=== PATIENT | male | born 1960 | race African-American/Black ===

== ENCOUNTER 2017-09-14 22:15 | Inpatient (IN) | payer OTHER ==
[~2017-09-14] VITALS: Ht 182.9 cm; Wt 104.8 kg
[2017-09-14] MEDS ORDERED: NALOXONE PREFILLED SYRINGE 2 MG/2 ML SYRINGE ONE (22:22)
--- NOTE | 2017-09-14 22:28 | NUR ---
BBRA 102; PT FOUND DROWSIE, HYPOTENSIVE AT PSYCH FACILITY. PT NOTED DROWSEY AOX3 RR EVEN AND UNLABORED. NO SOB NOTED. NAD NOTED. NO NVD AT THIS TIME. PT GOWNED AND PLACED ON MONITOR. DR. YUNG AT BEDSIDE FOR EVAL.
--- NOTE | 2017-09-14 22:29 | NUR ---
PT NOTED WITH RA 02 SAT 85%, PT PLACED ON NC 4LPM, IMPROVED SAT TO 97%
[2017-09-14] MEDS ORDERED: NALOXONE HCL 0.4 MG/ML AMPUL IV ONE (22:30)
[2017-09-14] MEDS ORDERED: IV NS 0.9% 1,000 ML BAG IV ONE (22:30)
--- NOTE | 2017-09-14 22:30 | NUR ---
CALLED NURSING SUP. FOR ICU BED
[2017-09-14 22:43] LABS: BASOPHILS # (AUTO) 0.1 /CMM (0.0-0.2); BASOPHILS % (AUTO) 0.7 % (0.0-2.0); EOSINOPHILS % (AUTO) 1.8 % (0.0-6.0); HEMATOCRIT 35 % (39-51); HEMOGLOBIN 11.2 g/dL (13.5-17.5); LYMPHOCYTES # (AUTO) 3.7 /CMM (0.8-4.8); LYMPHOCYTES % (AUTO) 48.2 % (20.0-44.0); MEAN CORPUSCULAR HGB CONC 32 g/dl (31.0-36.0); MEAN CORPUSCULAR VOLUME 82 fL (80-96); MONOCYTES # (AUTO) 0.7 /CMM (0.1-1.30); MONOCYTES % (AUTO) 8.7 % (2.0-12.0); NEUTROPHILS # (AUTO) 3.1 /CMM (1.8-8.9); NEUTROPHILS % (AUTO) 40.6 % (43.0-81.0); PLATELET COUNT (AUTO) 171 /CMM (150-450); RDW COEFFICIENT OF VARIATION 14.7 (11.5-15.0); RED BLOOD CELL COUNT(AUTO) 4.22 MIL/uL (4.5-6.0); WHITE BLOOD COUNT (AUTO) 7.7 K/uL (4.3-11.0)
[2017-09-14] MEDS ORDERED: IOHEXOL-350 100 ML VIAL IV ONE (22:46)
[2017-09-14] MEDS ORDERED: CT SWABBABLE VALVE TRANS SET 1 EA INFUS.SET MC ONE (22:46)
[2017-09-14] MEDS ORDERED: IV NS 0.9% 500 ML IV ONE (22:47)
[2017-09-14 22:57] LABS: INR 0.98 (0.87-1.13)
--- NOTE | 2017-09-14 23:04 | NUR ---
RADIOLOGY AT BEDSIDE FOR CXR
--- NOTE | 2017-09-14 23:17 | NUR ---
PT TO CT.
[2017-09-14 23:21] LABS: THYROID STIMULATING HORMONE 4.833 uIU/mL (0.358-3.74)
[2017-09-14 23:29] LABS: CHLORIDE 99 mmol/L (98-107); SODIUM SERUM 132 mmol/L (136-145)
[2017-09-14 23:30] LABS: BILIRUBIN,DIRECT 0.1 mg/dL (0.0-0.2); BILIRUBIN,TOTAL 0.7 mg/dL (0.2-1.0); CALCIUM, SERUM 8.9 mg/dL (8.5-10.1); CARBON DIOXIDE 24 mmol/L (21-32); CREATININE 2.1 mg/dL (0.6-1.3); GLUCOSE 158 mg/dL (74-106); UREA NITROGEN, BLOOD 31 mg/dL (7-18)
[2017-09-14 23:31] LABS: ACETAMINOPHEN 0 ug/ml (10-30); ALANINE AMINOTRANSFERASE 28 U/L (12-78); ALBUMIN 3.3 g/dL (3.4-5.0); ALKALINE PHOSPHATASE 55 U/L (46-116); ASPARTATE AMINOTRANSFERASE 30 U/L (15-37); SALICYLATE 2.2 mg/dL (2.8-20.0); SERUM AMMONIA 16 umol/L (11-32)
--- NOTE | 2017-09-14 23:35 | NUR ---
PT RETURNED FROM CT.
[2017-09-14 23:47] LABS: ALCOHOL, BLOOD < 3 mg/dL (0-0); TROPONIN I < 0.017 ng/mL (0.00-0.056)
[2017-09-15] VITALS (22 sets, daily range): BP systolic 95–140; BP diastolic 46–87
[2017-09-15] MEDS ORDERED: IV NS 0.9% 500 ML BAG IV ONE
--- NOTE | 2017-09-15 01:43 | NUR ---
REPORT GIVEN TO SHABBIR FOR ICU BED 260.
[2017-09-15] MEDS ORDERED: LISI10TA5 PO (01:49)
[2017-09-15] MEDS ORDERED: GABA800T2 PO (01:49)
[2017-09-15] MEDS ORDERED: EFAV600T8 PO (01:49)
[2017-09-15] MEDS ORDERED: EMTR1TAB12 PO (01:49)
[2017-09-15] MEDS ORDERED: QUET300T2 PO (01:49)
[2017-09-15] MEDS ORDERED: BUPR150T10 PO (01:49)
[2017-09-15] MEDS ORDERED: ALBU8.5H8 INH (01:49)
[2017-09-15] MEDS ORDERED: LOPI1TAB2 PO (01:49)
[2017-09-15] MEDS ORDERED: TRAM50TA2 PO (01:50)
[2017-09-15] MEDS ORDERED: EFAV1TAB PO (01:50)
--- NOTE | 2017-09-15 02:04 | NUR ---
ENDORESED TO RN BIJU TO COLLECT URINE WHEN AVAILABLE.
--- NOTE | 2017-09-15 02:16 | NUR ---
PT TRANSFERRED PER ACLS PROCOTOL TO ER BED 260
--- NOTE | 2017-09-15 02:45 | NUR ---
RN NOTES PATIENT ARRIVED VIA GURNEY, TOLERATED TRANSFER TO BED WELL. PT IS A/O X1 ONLY, UNABLE TO RECALL WHAT HAPPENED IN THE FACILITY, UNABLE TO PROVIDE OWN MEDICAL HISTORY. PT IS ON 2L NASAL CANNULA, SATURATING WELL, NO S/S OF RESP DISTRESS. DENIES ANY PAIN. CURRENTLY SR ON THE MONITOR, HR 80'S. BP IS WNL. NOTED SMALL ABDOMINAL WOUND, PIC TAKEN AND FILED. PT IS CONTINENT, ABLE TO USE URINAL NEEDED. LEFT AC 18, LEFT HAND 20G, AND RIGHT HAND 20G ALL FLUSHED AND PATENT, NO S/S OF INFILTRATION/INFECTION, DRESSINGS CDI. BED LOW AND LOCKED, SIDERAILS UP, CALL LIGHT WITHIN REACH. WILL MONITOR
[2017-09-15] MEDS ORDERED: ONDANSETRON HCL/PF 4 MG/2 ML VIAL IVP PRN (03:00)
[2017-09-15] MEDS ORDERED: MAGNESIUM HYDROXIDE 30 ML UDC PO PRN (03:00)
[2017-09-15] MEDS ORDERED: MAG HYDROX/AL HYDROX/SIMETH 30 ML UDC PO PRN (03:00)
[2017-09-15] MEDS ORDERED: ACETAMINOPHEN 325 MG TABLET PO PRN (03:00)
[2017-09-15] MEDS ORDERED: Z GUARD REMEDY 2 OZ OINT TP PRN (03:00)
[2017-09-15] MEDS: IV NS 0.9% 1,000 ML IV PRN (03:12)
[2017-09-15] MEDS: CEFTRIAXONE 1 G in IV D5W 50 ML IV SCH (03:19)
--- NOTE | 2017-09-15 03:25 | NUR ---
LOADER HELPER SORTING YARD NOTE CLARIFIED DIET ORDER WITH BAGGAGE INSPECTOR JACQUELYN, PATIENT AWAKE, ALERT, C/O FEELING HUNGRY AND THIRSTY. WITH NO DIFFICULTY IN SWALLOWING. PER JACQUELYN OK TO START ON REGULAR DIET.
[2017-09-15] MEDS ORDERED: NOREPINEPHRINE 16 MG in IV D5W 500 ML IV PRN (04:00)
[2017-09-15] MEDS ORDERED: METRONIDAZOLE 500MG/ NS 100ML 100 ML IV ONE (05:05)
[2017-09-15 05:08] LABS: BASOPHILS % (AUTO) 0.6 % (0.0-2.0); EOSINOPHILS % (AUTO) 1.3 % (0.0-6.0); HEMATOCRIT 31 % (39-51); HEMOGLOBIN 9.9 g/dL (13.5-17.5); LYMPHOCYTES # (AUTO) 2.2 /CMM (0.8-4.8); LYMPHOCYTES % (AUTO) 34.3 % (20.0-44.0); MEAN CORPUSCULAR HGB CONC 32 g/dl (31.0-36.0); MEAN CORPUSCULAR VOLUME 83 fL (80-96); MONOCYTES # (AUTO) 0.6 /CMM (0.1-1.30); MONOCYTES % (AUTO) 9.6 % (2.0-12.0); NEUTROPHILS # (AUTO) 3.5 /CMM (1.8-8.9); NEUTROPHILS % (AUTO) 54.2 % (43.0-81.0); PLATELET COUNT (AUTO) 173 /CMM (150-450); RDW COEFFICIENT OF VARIATION 14.9 (11.5-15.0); RED BLOOD CELL COUNT(AUTO) 3.74 MIL/uL (4.5-6.0); WHITE BLOOD COUNT (AUTO) 6.4 K/uL (4.3-11.0)
[2017-09-15] MEDS: METRONIDAZOLE 500MG/ NS 100ML 500 MG in PREMIX 1 EA IV SCH ×3 (05:09→17:16)
[2017-09-15 05:38] LABS: APPEARANCE,URINE CLEAR (CLEAR); BILIRUBIN,URINE NEGATIVE (NEGATIVE); BLOOD, URINE NEGATIVE Ery/uL (NEGATIVE); COLOR,URINE OTHER (YELLOW); KETONES,URINE NEGATIVE (NEGATIVE); LEUKOCYTE ESTERASE ,URINE NEGATIVE (NEGATIVE); NITRITE, URINE NEGATIVE (NEGATIVE); PH,URINE 6.5 (5.0-8.0); PROTEIN,URINE NEGATIVE (NEGATIVE); UGLUCOSE NEGATIVE (NEGATIVE); UROBILINOGEN,URINE 0.2 EU/dL (0.2)
[2017-09-15 05:42] LABS: CREATININE 1.6 mg/dL (0.6-1.3); POTASSIUM 4.5 mmol/L (3.5-5.1)
--- NOTE | 2017-09-15 06:15 | NUR ---
RN CLOSING NOTES PT REMAINS STABLE OF THE MOMENT. ALL DUE MEDS GIVEN, AM CARE PROVIDED. WILL ENDORSE RICKY TO AM RN
[2017-09-15] MEDS: PANTOPRAZOLE 40 MG VIAL IV SCH (08:11)
[2017-09-15] MEDS: ENOXAPARIN SODIUM 40 MG/0.4 ML DISP.SYRIN SQ SCH (08:12)
[2017-09-15] MEDS: HYDROCODONE/APAP 5/325MG 1 EACH TABLET PO PRN ×3 (10:01→21:47)
--- NOTE | 2017-09-15 11:25 | NUR ---
TEXTED MD RAMIREZ ABOUT HIV MEDICATION RECONCILIATION AND THAT PHARMACY DOES NOT STOCK BOBBI UGALDE TEXTED BACK ID CONSULTED.
[2017-09-15] MEDS: GABAPENTIN 400 MG CAPSULE PO SCH ×2 (13:23→16:19)
--- NOTE | 2017-09-15 15:00 | NUR ---
RN NOTES RECEIVED PT FROM ICU, A&0X3, ON ROOM AIR, SR ON THE TELE JUAN HR 78. LAC 18G IV SITE INTACT WITH IVF AT 75ML/HR. COMPLAINS OF BACK PAIN 12/22. BED LOCKED AND IN LOWEST POSITION, CALL LIGHT WITHIN REACH, SIDE RAILS UPX3, WILL CONT TO JUAN.
[2017-09-15] MEDS: buPROPion SR 150 MG TABLET.ER PO SCH (16:19)
[2017-09-15] MEDS ORDERED: LOPINAVIR PO SCH (17:00)
[2017-09-15] MEDS ORDERED: RITONAVIR PO SCH (17:00)
--- NOTE | 2017-09-15 17:12 | NUR ---
09/15/17 Patient was transferred from [facility] in [place] . Patient was independent and ambulatory prior to admission. Has no family or relative on file. Current plan is to dc back to [facility] once medically clear. Addendum: 09/15/17 at 1713 by TYRELL JOSHI RN Amended: Links added.
--- NOTE | 2017-09-15 18:45 | NUR ---
RN NOTES PT REMAINED IN STABLE CONDITION, NO SIGNIFICANT CHANGES NOTED. ALL NEEDS MET. WAITING FOR ID CONSULT. WILL ENDORSE TO ONCOMING SHIFT.
--- NOTE | 2017-09-15 20:05 | NUR ---
DIANA RN NOTES RECEIVED BEDSIDE REPORT FROM AM NURSE. PT IN BED , EATING SANDWICH, A&0X4, ON ROOM AIR, SR ON THE TELE JUAN HR 82. LAC 18G IV SITE INTACT WITH IV NS AT 75ML/HR. COMPLAINS OF BACK PAIN 01/21. PAIN MEDICATION WILL BE PROVIDED. BED LOCKED AND IN LOWEST POSITION, CALL LIGHT WITHIN REACH, SIDE RAILS UPX2, WILL CONT. TO MONITOR.
[2017-09-15] MEDS: ZOLPIDEM TARTRATE 5 MG TABLET PO PRN (21:47)
[2017-09-15] MEDS ORDERED: QUETIAPINE FUMARATE 100 MG TABLET PO SCH (22:00)
[2017-09-16] VITALS: BP 118/57
[2017-09-16] MEDS: METRONIDAZOLE 500MG/ NS 100ML 500 MG in PREMIX 1 EA IV SCH ×4 (00:32→17:12)
[2017-09-16] MEDS: CEFTRIAXONE 1 G in IV D5W 50 ML IV SCH (03:40)
[2017-09-16 04:00] VITALS: BP 117/71
[2017-09-16 05:11] LABS: *BASOS 0 % (Not Estab.); *EOS 1 % (Not Estab.); *EOS, ABSOLUTE 0.1 x10E3/uL (0.0-0.4); *HGB 9.9 g/dL (13.0-17.7); *IMMATURE GRANULOCYTES 0 % (Not Estab.); *LYMPHOCYTES 37 % (Not Estab.); *LYMPHS, ABSOLUTE 2.3 x10E3/uL (0.7-3.1); *MCV 87 fL (79-97); *MONOCYTES 10 % (Not Estab.); *MONOS, ABSOLUTE 0.6 x10E3/uL (0.1-0.9); *NEUTROPHILS 52 % (Not Estab.); *NEUTROPHILS, ABSOLUTE 3.3 x10E3/uL (1.4-7.0); *PLT 189 x10E3/uL (150-379); *RBC 3.81 x10E6/uL (4.14-5.80); *RDW 14.6 % (12.3-15.4)
[2017-09-16 06:26] LABS: BASOPHILS % (AUTO) 0.8 % (0.0-2.0); EOSINOPHILS % (AUTO) 4.1 % (0.0-6.0); HEMATOCRIT 33 % (39-51); HEMOGLOBIN 10.6 g/dL (13.5-17.5); LYMPHOCYTES # (AUTO) 2.4 /CMM (0.8-4.8); LYMPHOCYTES % (AUTO) 51.1 % (20.0-44.0); MEAN CORPUSCULAR HGB CONC 32 g/dl (31.0-36.0); MEAN CORPUSCULAR VOLUME 83 fL (80-96); MONOCYTES # (AUTO) 0.6 /CMM (0.1-1.30); MONOCYTES % (AUTO) 13.5 % (2.0-12.0); NEUTROPHILS # (AUTO) 1.4 /CMM (1.8-8.9); NEUTROPHILS % (AUTO) 30.5 % (43.0-81.0); PLATELET COUNT (AUTO) 179 /CMM (150-450); RDW COEFFICIENT OF VARIATION 15.1 (11.5-15.0); RED BLOOD CELL COUNT(AUTO) 3.98 MIL/uL (4.5-6.0); WHITE BLOOD COUNT (AUTO) 4.6 K/uL (4.3-11.0)
[2017-09-16 07:06] LABS: CALCIUM, SERUM 8.6 mg/dL (8.5-10.1); CREATININE 1.1 mg/dL (0.6-1.3); MAGNESIUM 1.7 mg/dL (1.8-2.4); PHOSPHORUS 2.6 mg/dL (2.5-4.9); POTASSIUM 4.6 mmol/L (3.5-5.1)
--- NOTE | 2017-09-16 07:15 | NUR ---
RN INITIAL NOTES: REC'D PT ON BED, NOT IN ANY DISTRESS, A/O X 4. ON ROOM AIR, NO SOB. ON TELEMONITOR, SR W/ HR 76 BPM. HAS L AC G18, PL, PATENT & INTACT W/ NO S/SX OF INFECTION/INFILTRATION NOTED, W/ NS X 75 CC/HR INFUSING WELL. PROVIDED COMFORT & SAFETY ENVIRONMENT. CALL LIGHT PLACED W/IN REACH. WILL CONTINUE TO MONITOR & ATTEND PT NEEDS.
[2017-09-16 07:21] LABS: FERRITIN 44 ng/mL (8-388)
[2017-09-16 08:00] VITALS: BP 144/99
[2017-09-16] MEDS: PANTOPRAZOLE 40 MG VIAL IV SCH (08:13)
[2017-09-16] MEDS: HYDROCODONE/APAP 5/325MG 1 EACH TABLET PO PRN ×2 (08:13→15:17)
[2017-09-16] MEDS: GABAPENTIN 400 MG CAPSULE PO SCH ×3 (08:13→17:11)
[2017-09-16] MEDS: buPROPion SR 150 MG TABLET.ER PO SCH ×2 (08:13→17:11)
[2017-09-16] MEDS: IV NS 0.9% 1,000 ML IV PRN (08:13)
[2017-09-16] MEDS: LISINOPRIL (10MG) 10 MG TABLET PO SCH (08:14)
[2017-09-16] MEDS: ENOXAPARIN SODIUM 40 MG/0.4 ML DISP.SYRIN SQ SCH (08:14)
[2017-09-16 08:16] LABS: IRON, SERUM 96 ug/dl (50-175); TOTAL IRON BINDING CAPACITY 300 ug/dl (250-450)
--- NOTE | 2017-09-16 08:30 | NUR ---
RN NOTES: PT SEEN & EXAMINED BY DR. RAMIREZ.
[2017-09-16] MEDS ORDERED: EMTRICITABINE/TENOFOVIR 1 TAB PO SCH (09:00)
--- NOTE | 2017-09-16 10:05 | NUR ---
Social service consult requested by DIANA Adames for homelessness. Pt. is a 56 year old male who was admitted to [facility] for altered mental status. DYLAN and lining caser Geovanny met with pt. bedside. Pt. is alert and oriented x 4. Pt. was cooperative during the assessment. Pt. states he was at [facility] prior to admission at [facility]. However, pt. is currently denying suicidal or homicidal ideations at this time. Pt. has a psychiatric diagnosis of Schizophrenia. Pt. wants to go back to [facility] to cook pickled meat his belongings upon discharge from [facility]. Pt. will require taxi voucher to assist in getting to [id number] [address] in [facility] . Pt. informed SW he will need some clothing as well. SW to give pt. clothing prior to discharge. DYLAN updated DIANA Adames regarding pt's discharge plan. SW to give pt. list of homeless resources and food resources upon discharge.
[2017-09-16] MEDS ORDERED: MAGNESIUM OXIDE 400 MG TABLET PO ONE (10:14)
[2017-09-16] MEDS: EMTRICITABINE 200 MG CAPSULE PO SCH (10:23)
[2017-09-16] MEDS: TENOFOVIR DISOPROXIL FUMARATE 300 MG TABLET PO SCH (10:23)
[2017-09-16] MEDS: EFAVIRENZ 600 MG TABLET PO SCH (10:23)
[2017-09-16 12:00] VITALS: BP_SYST 127; BP_DIAS 78; BP_DIAS 88
[2017-09-16 16:00] VITALS: BP 141/86
[2017-09-16 16:14] LABS: *% CD 4 POS. LYMPH 23.8 % (30.8-58.5); *ABSOLUTE CD 4 HELPER 547 /uL (359-1519); *ABSOLUTE CD 8 SUPPRESSOR 851 /uL (109-897); *CD4/CD8 RATIO 0.64 (0.92-3.72)
--- NOTE | 2017-09-16 18:05 | NUR ---
RN NOTES: PT C/O SEVERE BACK PAIN & REQUESTING FOR HIGHER DOSE OF NORCO. MD ORDERED NORCO 10/325 MG PO Q6H PRN FOR SEVERE PAIN BUT USE PAIN MEDS CAUTIOUSLY.
--- NOTE | 2017-09-16 18:36 | NUR ---
RN CLOSING NOTES: NO ACUTE CHANGES NOTED W/IN SHIFT. PT TOLERATED ROOM AIR, NO SOB. L AC G18, PL, KEPT PATENT & INTACT W/ NO S/SX OF INFECTION/INFILTRATION NOTED, W/ NS X 75 CC/HR INFUSING WELL. KEPT WELL RESTED. NEEDS ATTENDED. BED KEPT LOW & IN LOCKED POS. CALL LIGHT PLACED W/IN REACH. WILL ENDORSE TO PM RN FOR RICKY.
[2017-09-16] MEDS: FOLIC ACID 1 MG TABLET PO SCH (18:48)
--- NOTE | 2017-09-16 19:30 | NUR ---
RN/MS NOTES: RECEIVED PT. IN BED WATCHING T.V. A/O X 4. ABLE TO MAKE NEEDS KNOWN. CONTINENT OF B/B. LAC G 18 PATENT AND INTACT W/ NO S/S INFECTION/INFILTRATION NOTED. W/ NS @ 75 ML/HR. DENIES ANY C/O CHEST PAIN OR SOB AT PRESENT. WILL CONTINUE TO MONITOR.
[2017-09-16 20:00] VITALS: BP 138/89
[2017-09-16] MEDS: HYDROCODONE/APAP 10/325MG 1 EA TABLET PO PRN (20:16)
[2017-09-17] MEDS: METRONIDAZOLE 500MG/ NS 100ML 500 MG in PREMIX 1 EA IV SCH ×5 (00:04→23:59)
[2017-09-17] MEDS: ZOLPIDEM TARTRATE 5 MG TABLET PO PRN ×2 (00:56→21:15)
[2017-09-17] MEDS: CEFTRIAXONE 1 G in IV D5W 50 ML IV SCH (02:02)
[2017-09-17] MEDS: IV NS 0.9% 1,000 ML IV PRN ×2 (03:40→21:21)
[2017-09-17 04:00] VITALS: BP 139/90
--- NOTE | 2017-09-17 07:22 | NUR ---
RN/MS NOTES: NO ACUTE CHANGES NOTED DURING THIS SHIFT. REPORT GIVEN TO AM NURSE FOR RICKY.
[2017-09-17 08:00] VITALS: BP 144/92
[2017-09-17] MEDS: EFAVIRENZ 600 MG TABLET PO SCH (08:05)
[2017-09-17] MEDS: EMTRICITABINE 200 MG CAPSULE PO SCH (08:05)
[2017-09-17] MEDS: TENOFOVIR DISOPROXIL FUMARATE 300 MG TABLET PO SCH (08:05)
[2017-09-17] MEDS: LISINOPRIL (10MG) 10 MG TABLET PO SCH (08:06)
[2017-09-17] MEDS: ENOXAPARIN SODIUM 40 MG/0.4 ML DISP.SYRIN SQ SCH (08:06)
[2017-09-17] MEDS: buPROPion SR 150 MG TABLET.ER PO SCH ×2 (08:07→17:26)
[2017-09-17] MEDS: FOLIC ACID 1 MG TABLET PO SCH (08:07)
[2017-09-17] MEDS: GABAPENTIN 400 MG CAPSULE PO SCH ×3 (08:07→17:26)
[2017-09-17] MEDS: PANTOPRAZOLE 40 MG VIAL IV SCH (08:07)
[2017-09-17] MEDS: HYDROCODONE/APAP 10/325MG 1 EA TABLET PO PRN ×3 (09:32→21:15)
[2017-09-17 16:00] VITALS: BP 135/92
--- NOTE | 2017-09-17 19:24 | NUR ---
RN CLOSING NOTES: NO DISTRESS NOTED. MEDICATED FOR PAIN ORDERED. TOLERATING DIET. VOIDING WELL. WILL CONT TO MONITOR.
[2017-09-17 20:00] VITALS: BP 145/89
--- NOTE | 2017-09-17 20:00 | NUR ---
RN INITIAL NOTES: RECEIVED PT RESTING IN BED. ABLE TO MAKE NEEDS KNOWN. CONTINENT OF B/B. LAC G 18 PATENT AND INTACT W/ NO S/S INFECTION/INFILTRATION NOTED. W/ NS @ 75 ML/HR. WILL CONTINUE TO MONITOR.
[2017-09-18] MEDS: CEFTRIAXONE 1 G in IV D5W 50 ML IV SCH (02:06)
[2017-09-18 04:00] VITALS: BP 140/85
[2017-09-18] MEDS: METRONIDAZOLE 500MG/ NS 100ML 500 MG in PREMIX 1 EA IV SCH ×2 (05:03→12:40)
--- NOTE | 2017-09-18 06:43 | NUR ---
RN CLOSING NOTES: NO CHANGES OVERNIGHT.NO DISTRESS NOTED. MEDICATED FOR PAIN ORDERED. TOLERATING DIET. VOIDING WELL. WILL CONT TO MONITOR.
--- NOTE | 2017-09-18 07:10 | NUR ---
RN OPENING NOTES RECEIVED PT. IN BED SLEEPING. BREATHING UNLABORED, AND EVENLY ON ROOM AIR. NO S/S OF ACUTE DISTRESS. IV FLUIDS RUNNING AT 75 ML/HR. BED IS IN LOWEST, AND LOCKED POSITION. URINAL AT BEDSIDE. 2 SIDE RAILS UP, AND CALL LIGHT WITHIN REACH. ALL NEEDS MET. WILL CONTINUE TO ASSESS AND MONITOR.
[2017-09-18 08:00] VITALS: BP 155/96
[2017-09-18] MEDS: PANTOPRAZOLE 40 MG VIAL IV SCH (08:30)
[2017-09-18] MEDS: LISINOPRIL (10MG) 10 MG TABLET PO SCH (08:36)
[2017-09-18] MEDS: FOLIC ACID 1 MG TABLET PO SCH (08:36)
[2017-09-18] MEDS: GABAPENTIN 400 MG CAPSULE PO SCH ×3 (08:37→16:23)
[2017-09-18] MEDS: buPROPion SR 150 MG TABLET.ER PO SCH ×2 (08:37→16:22)
[2017-09-18] MEDS: TENOFOVIR DISOPROXIL FUMARATE 300 MG TABLET PO SCH (08:38)
[2017-09-18] MEDS: EMTRICITABINE 200 MG CAPSULE PO SCH (08:38)
[2017-09-18] MEDS: EFAVIRENZ 600 MG TABLET PO SCH (08:39)
[2017-09-18] MEDS: ENOXAPARIN SODIUM 40 MG/0.4 ML DISP.SYRIN SQ SCH (08:39)
[2017-09-18] MEDS: HYDROCODONE/APAP 10/325MG 1 EA TABLET PO PRN (09:32)
[2017-09-18] MEDS ORDERED: METR250T PO (11:34)
[2017-09-18] MEDS ORDERED: LEVO500T75 PO (11:34)
[2017-09-18 16:00] VITALS: BP 144/40
--- NOTE | 2017-09-18 16:36 | NUR ---
TOBACCO PACKING MACHINE OPERATOR NOTES PT. WAS DISCHARGED IN MEDICALLY STABLE CONDITION. PT. LEAVING BY TAXI. PT. IS A&OX4. DISCHARGE INSTRUCTIONS WERE GIVEN WITH EDUCATION AND PT. VERBALIZED UNDERSTANDING. ID BAND, AND IV WAS REMOVED WITHOUT COMPLICATIONS. PT. WAS GIVEN RESOURCES FOR FOOD, AND CORRECTION. PT. WAS PROVIDED CLOTHES BEFORE DISCHARGE. BELONGINGS LIST WAS CHECKED, AND SIGNED. DISCHARGE PACKET WITH PRESCRIPTION WAS TAKEN BY PT, AND EXPLAINED ANTIBIOTIC REGIMEN. ALL QUESTIONS ANSWERED. PER STATED HE IS GOING TO [facility] [place] [id number] [address] [facility] [phone].
[2017-09-18] MEDS ORDERED: METRONIDAZOLE 500 MG TABLET PO SCH (18:00)
== END 2017-09-18 16:49 | disposition home or self-care (01) | DRG 720 ==
LOC: ER 22:16 → ICU 09-15 01:37 → TELE1 09-15 15:29 → MEDSG1 09-16 12:22
PROVIDERS: ADMIT Hospitalist; ATTEND Hospitalist
DX: A41.9 Sepsis, unspecified organism (principal); N17.0 Acute kidney failure with tubular necrosis; J69.0 Pneumonitis due to inhalation of food and vomit; R65.21 Severe sepsis with septic shock; G92 Toxic encephalopathy; E87.2 Acidosis; I95.9 Hypotension, unspecified; E44.1 Mild protein-calorie malnutrition; E88.09 Other disorders of plasma-protein metabolism, not elsewhere classified; Z68.31 Body mass index [BMI] 31.0-31.9, adult; F17.210 Nicotine dependence, cigarettes, uncomplicated; F20.9 Schizophrenia, unspecified; J45.909 Unspecified asthma, uncomplicated; M19.90 Unspecified osteoarthritis, unspecified site; Z59.0 Homelessness; K62.89 Other specified diseases of anus and rectum; F32.9 Major depressive disorder, single episode, unspecified; F19.11 Other psychoactive substance abuse, in remission; D63.8 Anemia in other chronic diseases classified elsewhere; D52.9 Folate deficiency anemia, unspecified
CPT/HCPCS: 36415; 70450-TC; 71045-TC; 80048-TC; 80061-TC; 80076-TC; 80305; 81000-TC; 82140-TC; 82728-TC; 82746; 82962-TC; 83540-TC; 83605-TC; 83735-TC; 84100-TC; 84439-TC; 84443-TC; 84484-TC; 85025-TC; 85730-TC; 86360; 87040-TC; 87081-TC; 87086-TC; A4216; A4606; C9113; G0480; J0696; J1650; J2310; J3490; J7030; J7040; J7060; Q9967; Z7610

== ENCOUNTER 2021-04-19 13:23 | Inpatient (IN) | payer OTHER ==
[~2021-04-19] VITALS: Ht 175.3 cm; Wt 87.1 kg
[~2021-04-19 13:23] MED LIST: ALBU8.5H8 INH; BUPR150T10 PO; EFAV600T8 PO; EMTR1TAB12 PO; GABA800T11 PO; LEVO500T23 PO; LISI10TA29 PO; LOPI1TAB2 PO; METR250T PO; QUET300T2 PO; TRAM50TA2 PO
[2021-04-19] MEDS ORDERED: IBUPROFEN 600 MG TABLET PO PRN (16:30)
[2021-04-19] MEDS ORDERED: MAGNESIUM HYDROXIDE 30 ML UDC PO PRN (16:30)
[2021-04-19] MEDS ORDERED: IBUPROFEN 200 MG TABLET PO PRN (16:30)
[2021-04-19] MEDS ORDERED: ACETAMINOPHEN ES 500 MG TABLET PO PRN (16:30)
--- NOTE | 2021-04-19 19:00 | NUR ---
GPS ADMISSION NOTES PATIENT HAS BEEN ADMITTED ON A VOLUNTARY STATUS FOR CLINICAL TRIALS UNDER THE CARE OF DR BEJARANO. PATIENT IS ALERT AND ORIENTED X3. PATIENT IS CALM, COOPERATIVE, SPEECH IS CLEAR. NO S/S OF ACUTE DISTRESS NOTED. PATIENT IS CONTINENT AND AMBULATORY WITH GOOD STEADY GAIT. PATIENT ORIENTED TO UNIT. PT DENIES SUICIDAL AND HOMICIDAL IDEATION AT THIS TIME. PT DENIES AUDITORY HALLUCINATION. PATIENT ADMITTED HAVING VISUAL HALLUCINATION. PATIENT STATES "I SEE THINGS THAT PEOPLE DON'T SEE, SOMETIMES". PT PRESENTS WITH INTACT SKIN. SAFETY MEASURES IN PLACE. WILL CONTINUE TO MONITOR FOR SAFETY, COMFORT AND BEHAVIOR Q15 MINUTES PER GPS PROTOCOL. Addendum: 04/20/21 at 0636 by ROBERTO LINARES RN PATIENT PREFERS REGULAR DIET THAN CARDIAC DIET. EXPLAINED TO PATIENT THAT HE IS HYPERTENSIVE. PATIENT STATES "MY BLOOD PRESSURE IS CONTROLLED. WILL ENDORSE TO DAY SHIFT NURSE TO INFORM DR. BEJARANO REGARDING PATIENT'S DIET.
[2021-04-19 20:00] VITALS: BP 144/91
[2021-04-19] MEDS ORDERED: QUETIAPINE 100 MG PO ONE (22:00)
[2021-04-20 08:00] VITALS: BP 132/72
[2021-04-20] MEDS: BENAZEPRIL 40 MG PO SCH (08:33)
--- NOTE | 2021-04-20 09:29 | NUR ---
RN Notes: Received pt. asleep in bed, breathing is even and unlabored. Ate 100% for breakfast, compliant on med. Pt. is pleasant and cooperative. Encouraged to verbalize feelings and motivated to attend group activity. Needs attended and will continue to monitor for safety.
--- NOTE | 2021-04-20 11:00 | NUR ---
Kike staff of Dr. Hall came and picked up pt. to the doctor's office
[2021-04-20 16:00] VITALS: BP 158/114
--- NOTE | 2021-04-20 16:24 | NUR ---
BP 158/114 and HI 85 and when rechecked BP 151/[address] Hall made aware and ordered Amlodipine 5 mg po daily and first dose now.
[2021-04-20] MEDS: AMLODIPINE BESYLATE 5 MG TABLET PO SCH (16:35)
--- NOTE | 2021-04-20 18:01 | NUR ---
Dr. Hall in the unit and made aware of the latest BP 146/115 and AK 98. No new order. Will continue to monitor
[2021-04-20 18:02] VITALS: BP 146/115
--- NOTE | 2021-04-20 19:30 | NUR ---
GPS RN NOTE, RECEIVED PATIENT AWAKE AND IN BED, NO S/S OR COMPLAINTS OF PAIN AT THIS TIME. PATIENT IS DISPLAYING NO S/S OF APPARENT DISTRESS AT THIS TIME. PATIENT BREATHING IS UNLABORED WITH EQUAL RISE AND FALL OF THE CHEST. PATIENT IS ALERT AND ORIENTED X 3 ON ROOM AIR WITH A SPO2 97%. PATIENT IS COMPLIANT WITH MEDICATIONS, CALM, POLITE, ISOLATIVE, AND COOPERATIVE. PATIENT DENIES SUICIDAL AND HOMICIDAL IDEATIONS AT THIS TIME. PATIENT ASSISTED WITH TURNING AND REPOSITIONING Q2HR AND PRN FOR COMFORT AND CIRCULATION. PATIENT HAS NO NEEDS AT THIS TIME. PATIENT EDUCATED ON THE USE OF THE CALL ABDUL. PATIENT BED SIDE RAILS UP X 2 FOR SAFETY. PATIENT BED IS LOCKED, LOW, WITH BED ALARM ON. WILL CONTINUE TO MONITOR THIS PATIENT Q15 MINUTES WITH THE HELP OF STAFF TO MAINTAIN SAFETY.
[2021-04-20 20:29] VITALS: BP 136/74
[2021-04-20] MEDS: QUETIAPINE 100 MG PO SCH (21:55)
[2021-04-20] MEDS: ZOLPIDEM TARTRATE 10 MG TABLET PO PRN (22:18)
--- NOTE | 2021-04-20 22:18 | NUR ---
GPS, RN NOTE, PATIENT HAS A COMPLAINT OF NOT BEING ABLE TO SLEEP AND IS REQUESTING AMBIEN AT THIS TIME. PATIENT VITAL SIGNS ARE STABLE. GAVE AMBIEN 10MG PO HS PRN ORDERED. WILL REASSESS FOR INSOMNIA AND I WILL CONTINUE TO MONITOR THIS PATIENT WITH THE HELP OF STAFF.
[2021-04-21 08:00] VITALS: BP 136/90
[2021-04-21] MEDS: BENAZEPRIL 40 MG PO SCH (08:28)
[2021-04-21] MEDS: AMLODIPINE BESYLATE 5 MG TABLET PO SCH (08:28)
--- NOTE | 2021-04-21 10:11 | NUR ---
Rn Notes: Received pt. asleep in bed, breathing is even and unlabored. Ate 25% for breakfast, compliant on meds. Pt. is quiet and isolates in room. No distress and no agitation noted. Needs attended and will continue to monitor for safety.
[2021-04-21 16:00] VITALS: BP 130/90
[2021-04-21 20:14] VITALS: BP 132/87
[2021-04-21] MEDS: QUETIAPINE 100 MG PO SCH (21:23)
[2021-04-21] MEDS: ZOLPIDEM TARTRATE 10 MG TABLET PO PRN (21:23)
[2021-04-22 08:00] VITALS: BP 139/100
[2021-04-22] MEDS: AMLODIPINE BESYLATE 5 MG TABLET PO SCH (08:47)
[2021-04-22] MEDS: BENAZEPRIL 40 MG PO SCH (08:48)
--- NOTE | 2021-04-22 09:00 | NUR ---
PATIENT ALERT ,VERBALLY RESPONSIVE ,POOR INSIGHT ,POOR JUDGMENT ISOLATIVE AND WITHDRAWN EASILY IRRITABLE AND AND ANXIOUS ,MOOD DEPRESSED ,NO PLAN FOR SELF CARE .
--- NOTE | 2021-04-22 13:00 | NUR ---
PATIENT REMAINS ISOLATIVE AND WITHDRAWN ,EASILY IRRITABLE AND AND ANXIOUS MOOD DEPRESSED ,NO PLAN FOR SELF CARE .
[2021-04-22] MEDS: LORAZEPAM 1 MG TABLET FOR AGITATION/ANXIETY PO PRN (15:56)
--- NOTE | 2021-04-22 15:56 | NUR ---
Patient c/o anxiety medicated with Ativan 1mg will continue to monitor .
[2021-04-22 16:00] VITALS: BP 151/101
[2021-04-22] MEDS: MAG HYDROX/AL HYDROX/SIMETH 30 ML UDC PO PRN (16:08)
[2021-04-22 20:00] VITALS: BP 105/61
[2021-04-22] MEDS: ZOLPIDEM TARTRATE 10 MG TABLET PO PRN (20:56)
[2021-04-22] MEDS ORDERED: QUETIAPINE 50 MG PO ONE (22:00)
[2021-04-23 08:00] VITALS: BP 122/91
[2021-04-23] MEDS: AMLODIPINE BESYLATE 5 MG TABLET PO SCH (08:23)
[2021-04-23] MEDS: BENAZEPRIL 40 MG PO SCH (08:23)
--- NOTE | 2021-04-23 09:00 | NUR ---
PATIENT ALERT ,VERBALLY RESPONSIVE ,POOR INSIGHT ,POOR JUDGMENT ISOLATIVE AND WITHDRAWN,STAY IN HIS ROOM .PREOCCUPIED WITH HIS OWN THOUGHTS ,EASILY IRRITABLE AND AND ANXIOUS ,MOOD DEPRESSED ,NO PLAN FOR SELF CARE .
--- NOTE | 2021-04-23 13:00 | NUR ---
PATIENT REMAINS ISOLATIVE AND WITHDRAWN,PREOCCUPIED WITH HIS OWN THOUGHTS EASILY IRRITABLE AND AND ANXIOUS MOOD DEPRESSED ,NO PLAN FOR SELF CARE .
--- NOTE | 2021-04-23 14:10 | NUR ---
pt c/o constipation medicated with milk of magnesia .will continue to monitor
[2021-04-23 16:00] VITALS: BP 137/101
--- NOTE | 2021-04-23 19:30 | NUR ---
RN NOTES: RECEIVED PATIENT IN BED RESTING COMFORTABLY. NO APPARENT DISTRESS NOTED. PATIENT IS CALM, COOPERATIVE, DEPRESSED MOOD. EASILY AGITATED, NO VERBALIZATION OF THOUGHTS AND FEELINGS. SAFETY PRECAUTIONS IN PLACE. WILL CONTINUE TO MONITOR Q15MIN ROUNDS FOR SAFETY AND BEHAVIOR.
[2021-04-23 20:24] VITALS: BP 128/76
[2021-04-23] MEDS: LORAZEPAM 1 MG TABLET FOR AGITATION/ANXIETY PO PRN (21:52)
--- NOTE | 2021-04-23 21:53 | NUR ---
RN NOTES: ANXIETY PATIENT IS ANXIOUS ,RESTLESS, AGITATED. PRN ATIVAN 1MG PO GIVEN. WILL CONTINUE TO MONITOR FOR PATIENT'S SAFETY.
[2021-04-23] MEDS: ZOLPIDEM TARTRATE 10 MG TABLET PO PRN (23:27)
--- NOTE | 2021-04-23 23:28 | NUR ---
RN NOTES INSOMNIA PT. C/O UNABLE TO SLEEP AMBIEN 10 MG PO PRN GIVEN PER PT. REQUEST, WILL CONTINUE TO MONITOR.
--- NOTE | 2021-04-24 09:00 | NUR ---
PATIENT ALERT ,VERBALLY RESPONSIVE ,POOR INSIGHT ,POOR JUDGMENT ISOLATIVE AND WITHDRAWN,STAY IN HIS ROOM PREOCCUPIED WITH HIS OWN THOUGHTS ,NPO ,MOOD DEPRESSED ,NO PLAN FOR SELF CARE .
[2021-04-24] MEDS: AMLODIPINE BESYLATE 5 MG TABLET PO SCH (09:39)
[2021-04-24] MEDS: BENAZEPRIL 40 MG PO SCH (09:39)
[2021-04-24 11:22] VITALS: BP 130/101
--- NOTE | 2021-04-24 14:43 | NUR ---
PATIENT PREOCCUPIED WITH HIS OWN THOUGHTS ,STAY IN HIS ROOM ALL DAY FLAT AFFECT EASILY IRRITABLE AND AND ANXIOUS MOOD DEPRESSED ,NO PLAN FOR SELF CARE .
[2021-04-24 16:00] VITALS: BP 136/102
--- NOTE | 2021-04-24 19:50 | NUR ---
RN NOTES: RECEIVED PATIENT IN BED RESTING COMFORTABLY. NO APPARENT DISTRESS NOTED. PATIENT IS CALM, COOPERATIVE, DEPRESSED MOOD.PREOCCUPIED HIS OWN THOUGHTS ,EASILY AGITATED, NO VERBALIZATION OF THOUGHTS AND FEELINGS. SAFETY PRECAUTIONS IN PLACE. WILL CONTINUE TO MONITOR Q15MIN ROUNDS FOR SAFETY AND BEHAVIOR.
[2021-04-24 20:00] VITALS: BP 141/95
[2021-04-24] MEDS: LORAZEPAM 1 MG TABLET FOR AGITATION/ANXIETY PO PRN (21:18)
--- NOTE | 2021-04-24 21:18 | NUR ---
RN NOTES: ANXIETY PATIENT C/O ANXIOUS ,RESTLESS, AGITATED. PRN ATIVAN 1 MG PO GIVEN. WILL CONTINUE TO MONITOR FOR PATIENT'S SAFETY.
[2021-04-24] MEDS: ZOLPIDEM TARTRATE 10 MG TABLET PO PRN (23:34)
--- NOTE | 2021-04-24 23:35 | NUR ---
RN NOTES: PT. C/O UNABLE TO SLEEP PRN AMBIEN 10 MG PO GIVEN PER PT. REQUEST, WILL CONTINUE TO MONITOR.
--- NOTE | 2021-04-25 07:17 | NUR ---
RN NOTE: PATIENT SLEEPING COMFORTABLY IN HER ROOM, DURING SCANNING COORDINATOR PT. SLEPT WELL 7 HOURS, NO ACUTE DISTRESS NOTED, NO BEHAVIOR PROBLEMS NOTED ,NO CHANGE OF CONDTION NOTED, WILL ENDORSE TO AM RN FOR CONTINUITY OF CARE.
[2021-04-25 08:00] VITALS: BP 126/89
[2021-04-25] MEDS: AMLODIPINE BESYLATE 5 MG TABLET PO SCH (09:49)
[2021-04-25] MEDS: BENAZEPRIL 40 MG PO SCH (09:49)
--- NOTE | 2021-04-25 14:38 | NUR ---
RAPID COVID 19 ANTIGEN SWAB DONE TODAY WITH NEGATIVE RESULTS NOTED
[2021-04-25] MEDS: LORAZEPAM 1 MG TABLET FOR AGITATION/ANXIETY PO PRN (14:57)
--- NOTE | 2021-04-25 15:00 | NUR ---
PT VERBALIZED THAT HE'S ANXIOUS AND REQUESTED FOR ATIVAN. PRN ATIVAN 1 MG TAB GIVEN AT 1457. WILL CONTINUE TO MONITOR PT
[2021-04-25 16:00] VITALS: BP 148/82
--- NOTE | 2021-04-25 19:30 | NUR ---
RN NOTES: PATIENT IN BED RESTING COMFORTABLY. NO APPARENT DISTRESS NOTED. PATIENT IS COOPERATIVE AT THIS TIME, DEPRESSED MOOD.PREOCCUPIED HIS OWN THOUGHTS ,EASILY AGITATED, NO VERBALIZATION OF THOUGHTS AND FEELINGS. SAFETY PRECAUTIONS IN PLACE. WILL CONTINUE TO MONITOR Q15MIN ROUNDS FOR SAFETY AND BEHAVIOR.
[2021-04-25 20:00] VITALS: BP 122/77
--- NOTE | 2021-04-25 22:21 | NUR ---
RN NOTES: PT. C/O BACK PAIN 09/21 PRN MOTRIN 600 MG PO GIVEN PER PT. REQUEST ,WILL CONTINUE TO MONITOR.
[2021-04-26 08:00] VITALS: BP 111/81
[2021-04-26] MEDS: AMLODIPINE BESYLATE 5 MG TABLET PO SCH (08:10)
[2021-04-26] MEDS: BENAZEPRIL 40 MG PO SCH (08:11)
--- NOTE | 2021-04-26 09:28 | NUR ---
RN Notes: Received pt. asleep in bed, breathing is even and unlabored. Ate 75% for breakfast. Pt. had shaving and assisted by staff. Encouraged to verbalize feelings and motivated to attend group activity. Needs attended and will continue to monitor for safety.
--- NOTE | 2021-04-26 11:32 | NUR ---
Received a call From dr. Hall and ordered Seroquel 200 mg QHS and d/c to [facility]. Pt. made aware.
[2021-04-26] MEDS ORDERED: LORAZEPAM 1 MG TABLET FOR AGITATION/ANXIETY PO PRN (13:00)
[2021-04-26] MEDS ORDERED: ZOLPIDEM TARTRATE 10 MG TABLET PO PRN (13:00)
[2021-04-26 16:00] VITALS: BP 118/86
--- NOTE | 2021-04-26 19:39 | NUR ---
GPS NOTES: ANXIETY PATIENT C/O FEELING ANXIOUS AND REQUESTING FOR ATIVAN. PRN ATIVAN 1MG PO GIVEN ORDERED. WILL CONTINUE TO MONITOR FOR PATIENT'S SAFETY.
[2021-04-26 20:00] VITALS: BP 135/95
--- NOTE | 2021-04-26 20:00 | NUR ---
GPS NOTES RECEIVED PATIENT IN BED RESTING COMFORTABLY. ALERT AND ORIENTED X4. NO S/SX OF ACUTE RESPIRATORY DISTRESS NOTED. PATIENT IS COOPERATIVE BUT ANXIOUS AT TIMES, LABILE MOOD, MED COMPLIANT. NO VERBALIZATION OF THOUGHTS OR FEELINGS. ENCOURAGED TO ATTEND IN GROUP ACTIVITIES. PATIENT DENIES PAIN OR DISCOMFORT AT THIS TIME. ON SMOKING PRIVILEGES PER UNIT SMOKING SCHEDULE. SAFETY PRECAUTIONS IN PLACE. WILL CONTINUE TO MONITOR Q15MIN ROUNDS FOR SAFETY AND BEHAVIOR.
[2021-04-26] MEDS: MAG HYDROX/AL HYDROX/SIMETH 30 ML UDC PO PRN (20:41)
--- NOTE | 2021-04-26 20:41 | NUR ---
GPS NOTES PATIENT C/O INDIGESTION. PRN MAALOX 30ML PO GIVEN. WILL CONTINUE TO MONITOR.
--- NOTE | 2021-04-26 21:26 | NUR ---
GPS NOTE: INSOMNIA PATIENT C/O INABILITY TO SLEEP. PRN AMBIEN 10MG PO GIVEN ORDERED. WILL CONTINUE TO MONITOR.
[2021-04-26] MEDS ORDERED: QUETIAPINE FUMARATE 100 MG TABLET PO SCH (22:00)
[2021-04-26] MEDS ORDERED: QUETIAPINE 100 MG PO SCH (22:00)
[2021-04-27 08:00] VITALS: BP 138/85
[2021-04-27] MEDS: BENAZEPRIL 40 MG PO SCH (08:00)
[2021-04-27] MEDS: AMLODIPINE BESYLATE 5 MG TABLET PO SCH (08:00)
--- NOTE | 2021-04-27 08:21 | NUR ---
Dr. Hall gave an order to D/C pt. today and somebody from the office will come and orange picker pt. Pt. without distress, denies suicidal and homicidal. Per psychiatrist not to given the investigational med.
--- NOTE | 2021-04-27 09:14 | NUR ---
Per psychiatrist not to give the investigational med. Pt. is for discharge.
[2021-04-27] MEDS ORDERED: INVEST MED Kar XT OR PLACEBO 50/20 MG PO SCH (10:00)
--- NOTE | 2021-04-27 10:05 | NUR ---
Pt. left the unit with belongings and picked by Dr. Hall's staff. Left without distress and ambulatory. V/S taken: BP 128/82, WI 89, RR 18, temp 98.0 and oxygen sat. 99%.
[2021-05-17] MEDS ORDERED: ZOLPIDEM TARTRATE 10 MG TABLET PO PRN (13:00)
[2021-05-17] MEDS ORDERED: LORAZEPAM 1 MG TABLET FOR AGITATION/ANXIETY PO PRN (13:00)
[2021-05-29] MEDS ORDERED: ZOLPIDEM TARTRATE 10 MG TABLET PO PRN (13:00)
[2021-05-29] MEDS ORDERED: LORAZEPAM 1 MG TABLET FOR AGITATION/ANXIETY PO PRN (13:00)
== END 2021-04-27 10:05 | disposition home or self-care (01) | DRG 951 ==
LOC: GPS 14:27
PROVIDERS: ADMIT Psychiatry & Neurology Psychiatry; ATTEND Psychiatry & Neurology Psychiatry
DX: Z00.6 Encounter for examination for normal comparison and control in clinical research program (principal); F20.0 Paranoid schizophrenia; I10 Essential (primary) hypertension; M41.9 Scoliosis, unspecified; Z20.822 Contact with and (suspected) exposure to COVID-19
CPT/HCPCS: 87081-TC